=== PATIENT | male | born 1970 | race Caucasian/White ===

== ENCOUNTER → 2017-11-24 | Outpatient (CLI) | payer OTHER ==
--- NOTE | 2017-11-24 16:03 | XR ---
EXAMINATION TYPE: XR Hip Complete RT DATE OF EXAM: 11/24/2017 COMPARISON: NONE HISTORY: Pain TECHNIQUE: 2 views submitted FINDINGS: There is no evidence of erosive change or acute fracture. Mild sclerosis of the right SI joint. IMPRESSION: 1. No evidence of acute fracture or dislocation. 2. Correlate for sacroiliitis.
--- NOTE | 2017-11-24 16:05 | XR ---
EXAMINATION TYPE: XR pelvis AP view DATE OF EXAM: 11/24/2017 COMPARISON: NONE HISTORY: Pain The osseous structures are intact and the joint spaces are preserved. No acute fracture is seen. Vi sualized bowel gas pattern is nonspecific. Mild sclerosis involving the right SI joint. IMPRESSION: 1. No acute fracture. Correlate for mild right sacroiliitis.
== END | disposition home or self-care (01) ==
LOC: RADXRYALE 14:53
PROVIDERS: ATTEND Family Medicine
DX: M25.551 Pain in right hip (principal); R10.2 Pelvic and perineal pain
CPT/HCPCS: 72170; 73502

== ENCOUNTER → 2023-06-28 | Outpatient (CLI) | payer OTHER ==
--- NOTE | 2023-07-04 02:07 | CTL ---
EXAMINATION TYPE: CT Low Dose Lung DATE OF EXAM: 06/28/2023 7:09 AM CLINICAL INDICATION:Male, 52 years old with history of Z12.2 LUNG CA SCR Z87.891 PERS HX TOBACCO DEPE NDEN; personal history of nicotine dependence, nodule , history of tobacco use. COMPARISON: None. TECHNIQUE: CT scan of the chest obtained without contrast from approximately the lung apices through the upper abdomen. Axial, coronal and sagittal reformatted images were obtained. Low dose technique w as utilized for nodule screening purposes. CT DLP: 139.1 mGycm, Automated exposure control for dose reduction was used. CT Contrast: IV contrast used: None. Oral contrast used: None. FINDINGS: Lack of intravenous contrast and low dose technique limits the evaluation of the vascular and soft ti ssue structures. LUNGS: No evidence of pulmonary fibrosis. No evidence of focal consolidation or infiltrate. There are emphysematous changes bilaterally, mild to the upper lobes. NODULES: Right middle lobe: Nodules measure 7 mm image 155 series 4, juxtapleural 5 mm image 149, juxtapleural 3.5 mm image 163. Slightly further inferiorly juxtapleural 4 mm image 183. Other 3 mm and 2 mm juxtapleural nodules are seen on image 187. No sizable left lung nodules are seen. PLEURA: No sizeable pleural effusion or pneumothorax. AIRWAY: Central airways are patent. LOWER NECK: No significant findings. MEDIASTINUM: No evidence of enlarged nodes.. HEART: Normal heart size. No significant coronary arterial calcification seen.. No appreciable perica rdial effusion. VASCULATURE: No significant aortic calcification seen. Minimal calcification at the proximal left roman bclavian artery.. Ascending aorta is 3.4 CM, descending is 2.2 CM. Aorta is considered normal in siz e. Pulmonary trunk measures 2.9 CM, within normal limits in size. Vessels otherwise not further asse ssed without contrast. SOFT TISSUES/LYMPH NODES: Mild gynecomastia. No axillary adenopathy. UPPER ABDOMEN: No significant findings. MUSCULOSKELETAL: Partially seen deformity of the mid right clavicle likely from remote healed traumat ic injury. There is no acute osseous abnormality seen. There are mild degenerative changes of the vis ualized spine. IMPRESSION: A few subcentimeter right middle lobe nodules, largest 7 mm. Nonspecific, but considered probably mónica ign. CT LUNG RADS AND FOLLOWUP RECOMMENDATION: Lung-RADS Category 3, Probably Benign: 6 month follow-up LDCT (low-dose CT). C Modifier (Personal history of lung cancer?): No. S Modifier (Other clinically significant or potentially significant findings?): No. Other significant or potentially significant abnormalities: None. Recommend smoking cessation (if current smoker), or continuation of smoking cessation (if prior smoke r). Annual screening for lung cancer with low-dose computed tomography is recommended in adults ages 55 to 77 years who have a 30 pack-year smoking history and currently smoke or have quit within the pa st 15 years. Screening should be discontinued once a person has not smoked for 15 years or develops a health problem that substantially limits life expectancy or the ability or willingness to have curat rosaura lung surgery. Lung RADS v.[email or web address]
== END | disposition home or self-care (01) ==
LOC: RADCTMAIN 06:52
PROVIDERS: ATTEND Internal Medicine Critical Care Medicine
DX: Z12.2 Encounter for screening for malignant neoplasm of respiratory organs (principal); R91.8 Other nonspecific abnormal finding of lung field; Z87.891 Personal history of nicotine dependence
CPT/HCPCS: 71271

== ENCOUNTER → 2023-12-04 | Outpatient (CLI) | payer OTHER ==
--- NOTE | 2023-12-04 09:22 | CT ---
EXAMINATION TYPE: CT chest w con DATE OF EXAM: 12/04/2023 COMPARISON: 06/28/2023 HISTORY: lung nodule f/u CT DLP: 673 mGycm, Automated exposure control for dose reduction was used. CONTRAST: Performed injected with 100 mL of Isovue 300. TECHNIQUE: Axial images were obtained at 5 mm thick sections. Reconstructed images are reviewed on [employer] computer in the coronal plane. FINDINGS: Portion of the thyroid visualized is normal. There is a 0.8 cm density within the anterior right upper lung field. Series 4 image 36. Finding appe ars less dense than the comparison study. Couple of punctate pleural-based densities are along the an terior lateral right lung margin, series 4 image 42. A small pleural-based density measuring 0.4 cm a long the anterolateral right lung, series 4 image 35, present previously. No enlarged mediastinal or hilar adenopathy is evident. Scattered shotty lymphadenopathy is mediast inal. The ascending aorta diameter at the level of the main pulmonary artery is 3.4 cm. The main pul monary artery diameter at the bifurcation is 2.[address] sections are obtained through the upper abdomen. Abdomen is essentially unremarkable. IMPRESSION: 1. Stable appearing nodules within the right anterolateral lung discussed above. Follow-up low-dose C T chest in 6 months is recommended. These should be confirmed as stable over the course of 2 years.
== END | disposition home or self-care (01) ==
LOC: RADCTMAIN 07:21
PROVIDERS: ATTEND Internal Medicine Critical Care Medicine
DX: R91.8 Other nonspecific abnormal finding of lung field (principal); R91.1 Solitary pulmonary nodule
CPT/HCPCS: 71260; Q9967

== ENCOUNTER → 2024-12-02 | Outpatient (CLI) | payer BC ==
--- NOTE | 2024-12-02 09:54 | CT ---
EXAMINATION TYPE: CT chest wo con DATE OF EXAM: 12/02/2024 6:57 AM COMPARISON: None. CLINICAL INDICATION: Male, 54 years old with history of R91.1 SOLITARY PULMONARY NODULE, Lung Nodule. TECHNIQUE: Axial images were obtained at 5 mm thick sections. Reconstructed images are reviewed on [employer] computer in the coronal plane. Contrast used: mL of , (none if empty) Oral contrast used: (none if empty) CT DLP: 525 mGycm, Automated exposure control for dose reduction was used. FINDINGS: Portion of the thyroid visualized is normal. There is a 0.5 cm nodule within the anterior right upper lung field. Series 4 image 23. This is stabl e from comparison. There is a 0.4 cm pleural-based nodule anterolateral right upper lung field. Series 4 image 34. Stabl e from comparison There is a 0.7 cm nodule anterior right midlung. Series 4 image 35. Stable from comparison. There are couple of tiny pleural-based density anterolateral right midlung. Series 4 image 41-42, stable from comparison. No enlarged mediastinal or hilar adenopathy is evident. The ascending aorta diameter at the level o f the main pulmonary artery is 3.8 cm. The main pulmonary artery diameter at the bifurcation is 2. c m. No significant coronary artery calcifications. Limited CT sections are obtained through the upper abdomen. Abdomen is essentially unremarkable. IMPRESSION: 1. Stable nodules right lung discussed above. Follow-up low-dose CT chest recommended 1 year [facility] Jeremy Adrian, , 12/02/2024 9:51 AM
== END | disposition home or self-care (01) ==
LOC: RADCTMAIN 06:34
PROVIDERS: ATTEND Internal Medicine Critical Care Medicine
DX: R91.8 Other nonspecific abnormal finding of lung field (principal)
CPT/HCPCS: 71250